=== PATIENT | female | born 1940 | race Asian ===

== ENCOUNTER 2018-01-20 11:28 | Emergency (ER) | payer MEDICARE ==
[~2018-01-20] VITALS: Ht 160 cm; Wt 45.4 kg
[2018-01-20 11:41] VITALS: BP 150/87
--- NOTE | 2018-01-20 12:00 | Emergency Room Report ---
History of Present Illness General Chief Complaint: Female Urogenital Problems Source: Patient Present Illness HPI Patient is a 77-year-old female who presented after increased urinary retention. Patient had recently been noted to have Zhang catheter. The catheter had been discontinued. The patient not been vomiting or having any fever. Patient reports having increased abdominal distention and discomfort.The patient had been had noted have urinary retention since surgery for colon cancer resection. The patient had been previously noted to be stage II a. The patient had not been recently started any new medications. Allergies: Coded Allergies: No Known Allergies (Unverified , 01/20/18) Patient History Past Medical History: other - colon cancer stage 2a Past Surgical History: other - colon resection Reviewed Nursing Documentation: PMH: Agreed; PSxH: Agreed Nursing Documentation-PMH Past Medical History: No History, Except For Hx Gastrointestinal Problems: Yes - COLON CANCER Review of Systems All Other Systems: negative except mentioned in HPI Physical Exam Vital Signs Date Time Temp Pulse Resp B/P (MAP) Pulse Ox O2 Delivery O2 Flow Rate FiO2 01/20/18 11:38 98.0 116 20 150/87 99 Room Air 98.1 Sp02 EP Interpretation: reviewed, normal General Appearance: normal inspection, alert, GCS 15, Chronically Ill Head: atraumatic ENT: normal ENT inspection, hearing grossly normal, normal voice Neck: normal inspection, full range of motion, supple, no bony tend Respiratory: normal inspection, lungs clear, normal breath sounds, no respiratory distress, no retraction, no wheezing Cardiovascular #1: regular rate, rhythm, no edema Gastrointestinal: normal inspection, soft, no hernia, distended Genitourinary: no CVA tenderness Musculoskeletal: normal inspection, back normal, normal range of motion Neurologic: normal inspection, alert, oriented x3, responsive, medical lab scientist III-XII nml as tested, normal gait, speech normal Psychiatric: normal inspection, judgement/insight normal, mood/affect normal Skin: normal inspection, normal color, no rash Medical Decision Making Diagnostic Impression: Primary Impression: Urinary retention Additional Impression: Colon cancer ER Course Patient presented to urinary retention. Differential diagnosis included wasn't limited to the medication reaction, neurogenic bladder, cauda equina syndrome. Patient's benign exam and does not appear to require any further imaging or laboratory testing at this time. Patient was noted to have evidence of urinary retention. The Zhang catheter was noted to have clear urine output. Urinalysis is ordered. Per patient's family she has Macrobid available at home. The patient will not be started on antibiotics at this time however if the urine culture comes positive patient will be advised to start antibiotics. The patient is advised to follow up with primary care urologist in the next few days . patient is advised to return if any worsening condition or if any changes in status that are concerning. This report is dictated with [employer] software architect software which may occasionally lead to discrepancies related to use of this software. Labs Test 01/20/18 12:40 Urine Color Pale yellow Urine Appearance Clear Urine pH 7 (4.5-8.0) Urine Specific [place] 1.005 (1.005-1.035) Urine Protein Negative (NEGATIVE) Urine Glucose (UA) Negative (NEGATIVE) Urine Ketones Negative (NEGATIVE) Urine Occult Blood 3+ (NEGATIVE) Urine Nitrite Negative (NEGATIVE) Urine Bilirubin Negative (NEGATIVE) Urine Urobilinogen Normal MG/DL (0.0-1.0) Urine Leukocyte Esterase 1+ (NEGATIVE) Urine RBC 2-4 /HPF (0 - 2) Urine WBC 0-2 /HPF (0 - 2) Urine Squamous Epithelial Cells Few /LPF (NONE/OCC) Urine Bacteria Occasional /HPF (NONE) Last Vital Signs Date Time Temp Pulse Resp B/P (MAP) Pulse Ox O2 Delivery O2 Flow Rate FiO2 01/20/18 11:41 98.1 116 20 150/87 99 Room Air 98.1 Status: improved Disposition: HOME, SELF-CARE Condition: Stable Josué Jansen MD Jan 20, 2018 12:00
[2018-01-20 12:49] VITALS: BP 140/80
[2018-01-20 13:00] LABS: APPEARANCE,URINE CLEAR; BILIRUBIN, URINE NEGATIVE (NEGATIVE); COLOR,URINE PALE YELLOW; GLUCOSE, URINE (UA) NEGATIVE (NEGATIVE); KETONES,URINE NEGATIVE (NEGATIVE); LEUKOCYTE ESTERASE ,URINE 1+ (NEGATIVE); NITRITE,URINE NEGATIVE (NEGATIVE); PH,URINE 7 (4.5-8.0); PROTEIN,URINE NEGATIVE (NEGATIVE); UROBILINOGEN,URINE NORMAL MG/DL (0.0-1.0)
== END 2018-01-20 12:38 | disposition home or self-care (01) ==
LOC: EMR 11:50
DX: C18.9 Malignant neoplasm of colon, unspecified (principal); R33.9 Retention of urine, unspecified
CPT/HCPCS: 81003; 99283